=== PATIENT | female | born 2000 | race Caucasian/White ===

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

== ENCOUNTER 2021-04-13 08:30 | Outpatient (RCR) | payer OTHER, SELFPAY ==
--- NOTE | 2021-04-05 09:43 | HP.PTEVAL ---
Patient's Visit Information JOHN QUINONES is a 20 year old F referred to Physical Therapy by Dr. John Kirkland MD with a diagnosis of R quad strain. Date of Evaluation: 04/05/21 Physical Therapist: Aristeo Turcios, PT, ATC - Visit Plan Frequency: 3-4 Duration: 1 Week Plan: R quad and hip flexor stretching, strengthening, core strengthening, DTR, AD, and HEP. US/CP for pain - Subjective Pt reports she strained her R quad back in november of 2020. 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 Pt reports she took a couple weeks off after that in hopes she would feel better. Pt reports she did return after that and the pain came back. Pt notes the pain has progressively worsened after that. Pt reports the pain has always been on the front of her R quad, however, starting yesterday the pain has become severe in her groin region. Pt has had no Dx tests at this time. No PMHx of R quad injury in the past. No tingling or numbness at this time. No sleep difficulty secondary to pain. Pt reports her pain is the worst when she is kicking the ball or cutting laterally during running. Pt reports she can still perform that activity, but the pain worsens as a result. 2/10 pain at rest, 6/10 pain at worst. - Pain R quad Pain Intensity (Out of 10): 2 Pain Intensity Range: 6 - Objective Neuro: B LE sensation is WNL to light touch. B patellar reflex= 2/3. Palpation: Minor pain with palpation of the anterior quad. No obvious deformity noted at this time. Knee ROM: L knee 0-132, R knee 0-132. MMT: L LE is grossly 5/5 throughout. R hip and knee MMT is grossly 4/5 throughout and painful in thigh and ant hip regions. Flexibility: Pt is moderately limited with HS's, hip flexor, and quad flexibility of R LE - Goals Goal 1:: I with HEP in 1 week Goal Time Frame: 1 Week - Rehabilitation Potential Physical Therapy Diagnosis: Pt has R quad pain, weakness, and limited flexibility secondary to R quad strain Rehabilitation Potential: Good - Anticipated Interventions Patient/Client Instruction: Educate patient on: Condition, Plan of Care For the Purpose of:: To improve self management Therapeutic Exercise to Include: Strength training, Endurance training, Flexibilty training, Dynamic Lumbar Stabilization For the Purpose of:: To decrease pain, To increase ROM, To improve muscle performance and motor function Cryotherapy (ice pack, ice massage): Yes Ultrasound (thermal/non thermal): Yes For the Purpose of:: To decrease pain Thank you for the opportunity to evaluate your patient. For Medicare and Medicare HMO plans, please review the plan of care and approve it. It will need to be FAXED BACK to us at [phone] for Medicare purposes. For Medicare only, by signing this I certify the plan of care. Please let me know if there are questions or concerns regarding this plan of care. Physician Signature: Date:
--- NOTE | 2021-04-13 09:04 | HP.PTDCSUM ---
It has been my pleasure to treat JOHN QUINONES referred by Dr. John Kirkland MD, with the diagnosis of R quad strain for a total of 6 visit(s). Discharge Date: Please see the following information for a summary of their discharge status. Subjective: Pt is ready for discharge. No pain this date R quad Pain Intensity (Out of 10): 0 % Improvement: 95 Objective/Function: Pt is now pain free and I with HEP. Rx goals achieved. Goal 1:: I with HEP in 1 week Goal Progress: Goal Met Plan: Discharge If there are questions or concerns regarding this patient's physical therapy, please feel free to call me at [phone]. Thank you for the referral of this patient. Sincerely, Aristeo Turcios, PT, ATC Balance/Gait/Functional tests - Balance/Special Test Scores Lower Extremity Functional Score: 80
== END 2021-04-13 19:00 | disposition home or self-care (01) ==
LOC: PT 08:30
PROVIDERS: PCP Family Medicine; Referring Provider Family Medicine; Visit Provider Family Medicine
DX: S86.111D Strain of other muscle(s) and tendon(s) of posterior muscle group at lower leg level, right leg, subsequent encounter (principal); X58.XXXD Exposure to other specified factors, subsequent encounter; Y93.66 Activity, soccer; Y92.9 Unspecified place or not applicable; Y99.8 Other external cause status
CPT/HCPCS: 97035; 97110; 97140; 97161